=== PATIENT | male | born 1980 ===

== ENCOUNTER → 2017-07-12 | Outpatient (CLI) | payer BC ==
--- NOTE | 2017-07-12 14:02 | RADIOLOGY REPORT (SQ) ---
EXAM DESCRIPTION: U/S THYROID/SFT TISS HD NECK COMPLETED DATE/TIME: 07/12/2017 12:03 pm REASON FOR STUDY: E04.9 NONTOXIC GOITER, UNSPECIFIED E04.9 NONTOXIC GOITER, UNSPECIFIED COMPARISON: None. TECHNIQUE: Dynamic and static schwartz-scale images acquired of the thyroid gland. Selected additional c olor/power Doppler images recorded. All images stored to PACS. LIMITATIONS: None. FINDINGS: RIGHT LOBE: Right lobe thyroid is 3.6 x 2.5 x 2.7 cm in size with very heterogeneous echo texture. There are multiple masses in the right lobe thyroid, the largest is 2.7 cm in diameter in t he right lower pole. LEFT LOBE: Left lobe thyroid is 3.8 x 2.8 x 2.2 cm in size with very a heterogeneous echotexture. M ajority of the left lobe thyroid is replaced by a 4 cm mass. ISTHMUS: Thickened, 6 mm in thickness with heterogeneous echotexture. No cystic or solid masses. OTHER: No other significant finding. IMPRESSION: Diffusely abnormal thyroid, with multiple masses in the right and left lobe thyroid. TECHNICAL DOCUMENTATION: JOB ID: [id number] [employer]- All Rights Reserved
== END ==
LOC: RAD 10:26
PROVIDERS: ATTEND Internal Medicine
DX: E04.9 Nontoxic goiter, unspecified (principal)
CPT/HCPCS: 76536